=== PATIENT | female | born 1960 | race Caucasian/White ===

== ENCOUNTER 2017-02-14 06:00 | Inpatient (IN) | payer OTHER ==
[~2017-02-14] VITALS: Ht 172.7 cm; Wt 87.1 kg
--- NOTE | ~2017-02-14 | CO ---
Unit #: [id number] #: [id number] Patient: IRVIN MCCULLOUGH [id number] [place] [address] [id number] I MR#: [id number] NAME: IRVIN MCCULLOUGH ROOM: P176 Age: 56 Sex: F Admission Date: 02/14/2017 : 1960 Attending Physician: Pablo Vee M.D. Consultation Date: 02/18/2017 CONSULTATION REPORT REASON FOR CONSULTATION Elevated blood pressure/sore throat. HISTORY OF PRESENT ILLNESS The patient is a 56-year-old female, admitted secondary to acute psychiatric illness. I was asked to evaluate her secondary to elevated blood pressure. Initially, her blood pressure was 132/76 and had slowly risen; at one point, it was 166/113, this morning it is currently at 147/110. I was asked to evaluate for possible blood pressure management and/or medications. At the present time, the patient is quite somnolent. She denies any headaches or chest pain. She denies any prior history of any hypertension and at best, I do question her compliance. PAST MEDICAL HISTORY As per chart review. CURRENT MEDICATIONS Include Celexa, multivitamins, B12, Neurontin, and Tylenol. ALLERGIES No known drug allergies. REVIEW OF SYSTEMS Please see HPI. PHYSICAL EXAMINATION GENERAL: Awake, alert, oriented to person, place, and time. Well built, well nourished. Does not appear to be in any acute distress. HEAD: Atraumatic. Normocephalic. EYES: Bilateral extraocular muscles are normal. Pupils equal, reactive to light and accommodation. Sclerae are normal. No jaundice. NECK: Neck is supple. No neck rigidity. No thyromegaly. No carotid bruit. No JVD. Oral mucosa is moist. CHEST: Bilateral vesicular breathing. Clear to auscultation. No basilar rales. CARDIOVASCULAR: S1 and S2 normal. No murmur, no gallop, no rub. ABDOMEN: Soft, nontender. No organomegaly. Bowel sounds are normal. No hernia, no masses, no rebound, no guarding. EXTREMITIES: No pitting edema. No calf tenderness. Extremity pulses, including dorsalis pedis, have good volume. BACK: Normal spine curvature. No spine tenderness. No costovertebral angle tenderness. FAMILY LAW LEGAL ASSISTANT: Cranial nerves normal bilaterally. Motor function bilaterally symmetric and normal. Sensory system normal. Unit #: [id number] #: [id number] Patient: IRVIN MCCULLOUGH SKIN: The patient does have what appears to be a dried crusted lesion right beneath her nose above her upper lip. INITIAL IMPRESSION Elevated blood pressure, likely essential hypertension. PLAN At this point in time, I will initiate Norvasc 5 mg p.o. daily. She does have a mildly elevated creatinine of 1.2 and with her likely likelihood of not following up as an outpatient for routine laboratory studies, certainly her prognosis would be guarded secondary to elevated blood pressure. In regard to her discomfort of swallowing, at this point in time we will initiate Chloraseptic throat spray. If she does develop any elevated temperatures, cough, congestion, or any further upper respiratory infection signs or symptoms, I would be happy to re-evaluate her, but it seems likely secondary to her being a mouth breather. She likely has dry irritation present in the back of her throat and seems unlikely to be infectious in origin. Thank you Dr. Vee for this consultation. Dictated by... Linwood Epps M.D. FLO/jessica TD: 02/18/2017 18:34 JOB #: [id number] CONSULTATION REPORT Page 1 of 1 X Linwood Epps MD CONSULTATION REPORT
--- NOTE | ~2017-02-14 | HP ---
Unit #: [id number] #: [id number] Patient: SOCO MCCULLOUGH [id number] [place] [address] [id number] I MR#: [id number] NAME: SOCO MCCULLOUGH ROOM: P178 Age: 56 Sex: F Admission Date: 02/14/2017 : 1960 Attending Physician: Pablo Vee M.D. Admitting Physician: Pablo Vee M.D. HISTORY AND PHYSICAL HISTORY OF PRESENT ILLNESS Soco is a 56-year-old female admitted on 02/14/2017 to [facility] for detox from alcohol and psychosis. PAST MEDICAL HISTORY COPD and hypertension. PAST SURGICAL HISTORY Hysterectomy. SOCIAL HISTORY She is and homeless. She reports drinking half gallon of vodka daily, smokes a pack of cigarettes daily. She denies any illegal drug use. FAMILY HISTORY Noncontributory. REVIEW OF SYSTEMS CONSTITUTIONAL: No fever or chills. HEENT: Denies any sore throat, ear pain or runny nose. CARDIOVASCULAR: Denies chest pain, irregular heart rhythm or palpitations. CHEST: Denies shortness of breath or cough. No hemoptysis. GASTROINTESTINAL: Denies nausea, vomiting, diarrhea or chronic constipation. ENDOCRINE: Denies history of increased thirst or urination. No recent significant weight loss or gain. GENITOURINARY: Denies dysuria, frequency, or hematuria. SKIN: Denies any rashes. HEMATOLOGIC: Denies history of increased bleeding or bruising. MUSCULOSKELETAL: Denies any hot, swollen joints. No generalized muscle pain. NEUROLOGIC: Denies problems with vision or speech. No frequent, severe headaches. No numbness, tingling or weakness in any extremities. Denies loss of bladder or bowel control. CURRENT MEDICATIONS None. ALLERGIES None. Unit #: [id number] #: [id number] Patient: SOCO MCCULLOUGH PHYSICAL EXAMINATION GENERAL: Alert, oriented, in no acute distress. VITAL SIGNS: Blood pressure 166/113, heart rate 88, respirations 16, temperature 98.5. HEIGHT: 5 foot 8 inches. WEIGHT: 192 pounds. SKIN: Warm and dry without rash or lesion. HEENT: Normocephalic. TMs not viewed. Oral and nasal passages clear. Conjunctivae clear. PERRLA. EOMs intact. NECK: Supple without lymphadenopathy or thyromegaly. HEART: Regular rate and rhythm without murmur. LUNGS: Clear. ABDOMEN: Soft, nontender, without masses or hepatosplenomegaly. : Not done. EXTREMITIES: No evidence of cyanosis, clubbing or edema. Moves all without focal deficit. NEUROLOGICAL: Grossly within normal limits. Cranial Nerves: II: Visual martinez are intact. III, IV AND : Extraocular movements are intact. Pupils are equal, round and reactive to light. V: Facial sensation is grossly normal. VII: Facial movements and expression are normal. VIII: Auditory acuity grossly intact. IX, X: Uvula is midline. Phonation is normal. XI: Patient shrugs shoulders and turns head normally. XII: Tongue protrudes in the midline. Sensory and Motor Function: Sensory and motor sensation is grossly normal. Motor: moves all extremities well. Coordination: Gait is normal. Deep Tendon Reflexes: Intact. IMPRESSION Psychiatric admission. RECOMMENDATIONS Psychiatric, per psychiatrist. MEDICAL: I see no contraindications to participating in facility's activities. MEDICAL PROGNOSIS Good. MEDICAL CONDITION Stable. Dictated by... Jade Reyes/brayden TD: 02/15/2017 01:56 JOB #: [id number] Unit #: [id number] #: [id number] Patient: SOCO MCCULLOUGH HISTORY AND PHYSICAL Page 1 of 1 X RADHA DE LA CRUZ APRN HISTORY AND PHYSICAL
--- NOTE | ~2017-02-14 | PN ---
Unit #: [id number] #: [id number] Patient: SOCO HO [id number] [facility] [address] [place] [address] [id number] I MR#: [id number] NAME: SOCO HO ROOM: [facility] Age: 56 Sex: F Admission Date: 02/14/2017 : 1960 Attending Physician: Pablo Vee M.D. Admitting Physician: Eyad Zarate PROGRESS NOTES DATE 02/16/2017 DISCUSSION Ms. Soco Ho is a 56-year-old female seen on 02/16/2017. Patient interviewed. Chart reviewed. Obtained information from nursing staff. Patient currently reporting feeling sad, depressed. Still having withdrawals. Patient's vital signs 98.3, 96, 141/103. Patient still anxious, nervous, unsteady, sad, depressed, anxious. Complete review of system unremarkable. MENTAL STATUS EXAMINATION General appearance, patient dressed casually. Attention span, concentration fair. Oriented in time, place and person. Mood and affect sad, dysphoric. Speech monotone. Thought process concrete. Patient denied any thoughts of harming self or others but having above mentioned symptoms. Recent and remote memory poor. Insight and judgement poor. DIAGNOSES 1. Alcohol use disorder, severe. 2. Mood disorder NOS. ASSESSMENT/PLAN Advised to continue with current medication and therapeutic protocol. If needed, consider further adjustment of medication. Dictated by... Eyad Zarate/christopher TD: 02/16/2017 20:23 JOB #: [id number] Unit #: [id number] #: [id number] Patient: SOCO HO PROGRESS NOTES Page 1 of 1 X Pablo Vee MD PROGRESS NOTE
--- NOTE | ~2017-02-14 | PA ---
Unit #: [id number] #: [id number] Patient: IRVIN MCCULLOUGH [id number] [facility] [address] [place] [address] [id number] I MR#: [id number] NAME: IRVIN MCCULLOUGH ROOM: P176 Age: 56 Sex: F Admission Date: 02/14/2017 : 1960 Date of Assessment: Attending Physician: Pablo Vee M.D. Admitting Physician: Pablo Vee M.D. PSYCHIATRIC ASSESSMENT INFORMANTS The patient reliability, fair informant and chart reliability, good. CHIEF COMPLAINT Alcohol abuse. HISTORY OF PRESENT ILLNESS Ms. Mccullough is a 56-year-old female, presented with the above-mentioned complaint, requesting for detox from alcohol. The patient presented with alcohol abuse and alcohol withdrawal and scored 24 on a CIWA score, having sweating, anxiety, tactile auditory hallucination, sad, depressed, anxious, headache, and disorientation. The patient has been drinking half a gallon of vodka daily for the last 4 years. The patient currently endorsing hopelessness and wish, but denied any specific plan. The patient reports extensive history of depression and two previous suicide attempts at age 8 and 35 by hanging and overdose. The patient needing inpatient admission at this time for psychiatric stabilization. The patient also reported tobacco use, age of onset 53 and alcohol, age of onset 16, half a gallon daily. Longest period of sobriety 2 years, last period of sobriety in early 30s. The patient reported blackouts and withdrawal symptom, but no history of HIV, hepatitis, or IV drug use. Currently, reporting diarrhea, diaphoresis, anxiety, depression, and hallucinations. PAST PSYCHIATRIC HISTORY Remarkable for history of previous treatment inpatient in [place] in 2013 and also in [place] for suicidal ideation. History of treatment at age 6, inpatient at [facility]. FAMILY HISTORY AND SOCIAL HISTORY The patient currently homeless. No known history of any abuse known at this time or legal charges. MEDICAL HISTORY Remarkable for history of COPD and arthritis. Musculoskeletal; muscle strength and tone, no atrophy or abnormal movement. Gait normal. MEDICATION HISTORY None. ALLERGIES No known drug allergies. Unit #: [id number] #: [id number] Patient: IRVIN MCCULLOUGH SUBSTANCE ABUSE HISTORY Please see above. REVIEW OF SYSTEMS HEENT: Eyes, clear. Ears, nose, mouth, and throat; clear. CARDIOVASCULAR: Unremarkable. RESPIRATORY: Unremarkable. GI: Unremarkable. : Unremarkable. SKIN: Unremarkable. LYMPH NODE: Unremarkable. NEUROLOGIC: Unremarkable. ENDOCRINE: Unremarkable. HEMATOLOGIC: Unremarkable. ALLERGIC/IMMUNOLOGIC: Unremarkable. MUSCULOSKELETAL: Muscle strength and tone, no atrophy or abnormal movement. Gait normal. MENTAL STATUS EXAMINATION CONSTITUTIONAL: Measurement of vital signs; temperature 98.5, heart rate 88, respiratory rate 16, blood pressure 166/113, height 5 feet 8 inches, and weight 192 pounds. GENERAL APPEARANCE: The patient dressed casually. The patient did not show any facial deformity. MUSCULOSKELETAL: Please see above. PSYCHIATRIC EXAMINATION Description of speech, rapid in rate. Description of thought process, circumstantial. Description of association, guarded. Description of abnormal psychotic thinking; the patient reported hallucination, paranoia, mood lability, depression, and suicidal ideation. Description of the patient's judgment: Concerning everyday activity, poor. Social situation, poor. Concerning psychiatric condition, poor. Complete mental status examination; oriented in time, place, and person. Recent and remote memory, fair. Attention span and concentration, poor. Language, intact. Fund of knowledge, fair. Mood and affect, labile. Insight and judgment, fair to poor. ASSETS AND LIABILITIES Assets, the patient is articulate and able to take care of her ADL. Liability, history of depression and substance abuse. ADMITTING DIAGNOSES Psychiatric: Alcohol use disorder, severe, F10.20 and major depressive disorder, recurrent, severe, F33.2. Secondary diagnosis: Deferred. Medical diagnoses: Chronic obstructive pulmonary disease and arthritis. Stressors: Psychosocial stressors, homelessness, financial problem, and poor support system. PSYCHIATRIC PLAN AND TREATMENT GOAL AND DISCHARGE PLAN 1. Advised to admit the patient on the inpatient unit. Provide safe, supportive, and structured environment. 2. Ordered labs; CBC, CMP, UA, and UDS. Unit #: [id number] #: [id number] Patient: IRVIN MCCULLOUGH 3. Precaution for self-harm. 4. Detox protocol and detox monitoring. Plan to consider medication such as SSRI. Treatment goal to attain euthymic mood, gain insight into her problem, and learn coping skills. The patient to attend all the programing including group therapy, individual therapy, chemical dependency group. We will also get a medical consult to review the patient's medical problems and treatment. DISCHARGE PLAN Plan to stabilize the patient and consider followup in outpatient program. ESTIMATED LENGTH OF STAY 5 days. Dictated by... Eyad Zarate/jessica TD: 02/14/2017 16:02 JOB #: [id number] PSYCHIATRIC ASSESSMENT Page 1 of 1 X Pablo Vee MD PSYCHIATRIC ASSESSMENT
--- NOTE | ~2017-02-14 | PN ---
Unit #: [id number] #: [id number] Patient: IRVIN MCCULLOUGH [id number] [facility] [address] [place] [address] [id number] I MR#: [id number] NAME: IRVIN MCCULLOUGH ROOM: [facility] Age: 56 Sex: F Admission Date: 02/14/2017 : 1960 Attending Physician: Pablo Vee M.D. Admitting Physician: Eyad Zarate PROGRESS NOTES DATE 02/15/2017 DISCUSSION Ms. Wan is a 56-year-old female seen on 02/15/2017. Patient interviewed. Chart reviewed. Obtained information from nursing staff. Patient's vital signs stable 98.3, 93, 128/79. Patient continues to be isolative, flat affect. Reported still having withdrawal symptoms from alcohol. Patient's vital signs 98.3, 93, 128/79. Complete review of system unremarkable. MENTAL STATUS EXAMINATION General appearance, patient dressed casually. Attention span, concentration fair. Oriented in time, place and person. Mood and affect sad, depressed. Speech monotone. Thought process concrete. Patient denied any suicidal or homicidal ideation but passive thoughts. Patient somewhat guarded, paranoid, isolative. Recent and remote memory poor. Insight and judgement poor. DIAGNOSES 1. Alcohol use disorder, severe. 2. Mood disorder NOS. ASSESSMENT/PLAN Advised to continue with current medications and therapeutic protocol. If needed, consider further adjustment of medication. Dictated by... Eyad Zarate/christopher TD: 02/15/2017 18:20 JOB #: [id number] Unit #: [id number] #: [id number] Patient: IRVIN MCCULLOUGH PROGRESS NOTES Page 1 of 1 X Pablo Vee MD X PROGRESS NOTE
--- NOTE | ~2017-02-14 | PN ---
Unit #: [id number] #: [id number] Patient: IRVIN HO [id number] [facility] [address] [place] [address] [id number] I MR#: [id number] NAME: IRVIN HO ROOM: [facility] Age: 56 Sex: F Admission Date: 02/14/2017 : 1960 Attending Physician: Pablo Vee M.D. Admitting Physician: Eyad Zarate PROGRESS NOTES DATE OF SERVICE 02/18/2017 DISCUSSION Ms. Ho is a 56-year-old female. Patient interviewed, chart reviewed. Obtained information from nursing staff. Patient still very anxious, nervous, restless, a lot of anxiety, mood lability. Patient tolerating medication fairly well. Patient still feeling very sad, depressed. Complete review of systems unremarkable. MENTAL STATUS EXAMINATION Vital signs 98.3, 90, 147/110. Attention span and concentration fair. Oriented to place and person. Mood and affect sad, depressed. Speech monotone. Thought process concrete. Patient having passive SI. Denied any homicidal ideation, guarded, isolative. Recent and remote memory poor. Insight and judgement poor. DIAGNOSES 1. Alcohol use disorder severe. 2. Mood disorder NOS. ASSESSMENT/PLAN Advise to continue with current medication and therapeutic protocol. If needed consider further adjustment of medication. Dictated by... Eyad Zarate/brayden TD: 02/20/2017 04:37 JOB #: [id number] Unit #: [id number] #: [id number] Patient: IRVIN HO PROGRESS NOTES Page 1 of 1 X Pablo Vee MD X PROGRESS NOTE
--- NOTE | ~2017-02-14 | PN ---
Unit #: [id number] #: [id number] Patient: SOCO HO [id number] [facility] [address] [place] [address] [id number] I MR#: [id number] NAME: SOCO HO ROOM: [facility] Age: 56 Sex: F Admission Date: 02/14/2017 : 1960 Attending Physician: Pablo Vee M.D. Admitting Physician: Eyad Zarate PROGRESS NOTES DATE 02/19/2017 DISCUSSION Ms. Soco Ho is a 56-year-old female, seen on 02/19/2017. The patient interviewed, chart reviewed, and obtained information from the nursing staff on 02/19/2017. The patient was compliant and cooperative during interview. Mood was sad and dysphoric, flat affect, and guarded, isolative. The patient's vital signs are stable, 98.4, 67, and 164/95 but still having withdrawal symptoms from alcohol. REVIEW OF SYSTEMS Complete review of systems unremarkable. MENTAL STATUS EXAMINATION General appearance: Patient dressed casually. Attention span and concentration, fair. Oriented in place and person. Mood and affect, sad, depressed, withdrawn, isolative, guarded. Recent and remote memory, poor. Insight and judgment, poor. DIAGNOSES 1. Alcohol use disorder, severe. 2. Mood disorder, NOS. ASSESSMENT/PLAN Advised to continue with the current medication and therapeutic protocol, and if needed consider further adjustment of medication. Dictated by... Eyad Zarate/dano TD: 02/20/2017 12:20 JOB #: [id number] Unit #: [id number] #: [id number] Patient: SOCO HO PROGRESS NOTES Page 1 of 1 X Pablo Vee MD PROGRESS NOTE
--- NOTE | ~2017-02-14 | CO ---
Unit #: [id number] #: [id number] Patient: SOCO MCCULLOUGH [id number] [place] [address] [id number] MR#: [id number] NAME: SOCO MCCULLOUGH ROOM: [facility] Age: 56 Sex: F Admission Date: 02/14/2017 : 1960 Attending Physician: Pablo Vee M.D. Consultation Date: 02/14/2017 CONSULTATION REPORT HISTORY OF PRESENT ILLNESS Soco reports a history of high blood pressure. She has been taking carvedilol 12.5 mg b.i.d., but her last dose was in March that was verified by pharmacy. She denies any chest pain or headache and is here to detox from alcohol. She has no complaints. PHYSICAL EXAMINATION CARDIAC: Regular rate and rhythm. No murmurs, gallops, or rubs. RESPIRATORY: Clear to auscultation bilaterally. ASSESSMENT AND PLAN Hypertension. Her blood pressures here have ranged from 110/73 to 166/113 and heart rates have been 72 to 108. For this reason, I am going to prescribe clonidine 0.1 mg p.o. q.12 hours p.r.n. for blood pressures greater than 140/90. She was instructed to follow up with her primary care provider after discharge to be restarted on medications. Dictated by... Jade Reyes/jessica TD: 02/14/2017 23:10 JOB #: [id number] CONSULTATION REPORT Page 1 of 1 X RADHA DE LA CRUZ APRN CONSULTATION REPORT
--- NOTE | ~2017-02-14 | PN ---
Unit #: [id number] #: [id number] Patient: IRVIN HO [id number] [facility] [address] [place] [address] [id number] I MR#: [id number] NAME: IRVIN HO ROOM: [facility] Age: 56 Sex: F Admission Date: 02/14/2017 : 1960 Attending Physician: Pablo Vee M.D. Admitting Physician: Eyad Zarate PROGRESS NOTES DATE OF SERVICE 02/17/2017 DISCUSSION Ms. Ho is a 56-year-old female seen on 02/17/2017. Patient interviewed, chart reviewed. Obtained information from nursing staff. Patient continues to be withdrawn, isolative, flat affect, sad, dysphoric mood. Currently on detox protocol. Vital signs stable, 98.4, 90, 147/110. Complete review of systems unremarkable. MENTAL STATUS EXAMINATION General appearance, patient dressed casually. Attention span and concentration fair. Oriented to place and person. Mood and affect sad, depressed. Speech monotone. Thought process concrete. Patient denied any suicidal ideation but withdrawn, isolative, flat affect, seclusive. Recent and remote memory poor. Insight and judgement poor. DIAGNOSES 1. Alcohol use disorder severe. 2. Mood disorder NOS. ASSESSMENT/PLAN Advise to continue with current medication and a plan to get medical consultation for hypertension management. If needed consider further adjustment of medication. Continue with the inpatient programming. Dictated by... Eyad Zarate/brayden TD: 02/19/2017 03:30 JOB #: [id number] Unit #: [id number] #: [id number] Patient: IRVIN HO PROGRESS NOTES Page 1 of 1 X Pablo Vee MD PROGRESS NOTE
--- NOTE | ~2017-02-14 | DS ---
Unit #: [id number] #: [id number] Patient: IRVIN MCCULLOUGH [id number] [place] [address] [id number] I MR#: [id number] NAME: IRVIN MCCULLOUGH ROOM: 76 Age: 56 Sex: F Admission Date: 02/14/2017 : 1960 Discharge Date: 02/20/2017 Attending Physician: Pablo Vee M.D. DISCHARGE SUMMARY REASON FOR ADMISSION Alcohol abuse, depression. DIAGNOSTIC STUDIES LABORATORY RESULTS: Unremarkable. HOSPITAL COURSE The patient was admitted to inpatient unit on 02/14/2017 and discharged on 02/20/2017. The patient was treated with behavior management, chemical dependency group, expressive therapy, detox protocol, detox monitoring, medication management. The patient was responsive to treatment. Subsequently, the patient was discharged with a plan to follow up in outpatient program. DISCHARGE MEDICATIONS Celexa 20 mg at bedtime for depression, Neurontin 300 mg t.i.d. for anxiety and chronic pain, Vistaril 50 mg t.i.d. for anxiety, Norvasc 5 mg once daily for hypertension. DISCHARGE DIAGNOSES Psychiatric: Alcohol use disorder, severe, F10.20; major depressive disorder, recurrent, severe, F33.2. Secondary diagnosis: Deferred. Medical diagnosis: Chronic obstructive pulmonary disease, arthritis, chronic pain. Stressors: Psychosocial stressor, homelessness, financial problem, poor support system. DISCHARGE INSTRUCTIONS The patient to follow up in outpatient clinic as per transition social worker. CONDITION ON DISCHARGE The patient was pleasant and cooperative. Denied any psychotic symptom or any suicidal ideation. PROGNOSIS Guarded. DIET AND ACTIVITY As tolerated. Unit #: [id number] #: [id number] Patient: IRVIN MCCULLOUGH Dictated by... Pablo Vee M.D. SZC/final TD: 02/21/2017 03:11 JOB #: [id number] DISCHARGE SUMMARY Page 1 of 1 X Pablo Vee MD X DISCHARGE SUMMARY
--- NOTE | ~2017-02-14 | A ---
[facility] Nutrition Therapy DATE: 02/16/17 Patient: IRVIN MCCULLOUGH Physician: CARA Address: NO PERMANENT ADDRESS Room/Bed: [address], Zip: [place] [address] Admit Date: 02/14/17 Date of : 62 Height: 5 8 Weight: [id number] NUTRITIONAL ASSESSMENT: REASON: 2 NUTRITIONAL RISK POINTS- UNINTENTIONAL WEIGHT LOSS, CHEWING/SWALLOWING DIFFICULTIES PATIENT ADMITTED FOR ETOH DETOX AND PSYHCOSIS PMH: COPD, HTN Anthropometrics: HT: 68", WT: 192#, BMI: 29.2 Labs: NO LABS AVAILABLE Meds: NEURONTIN, CELEXA, TRAZODONE, DETOX PROTOCOL Assessment: PATIENT IS A 56 Y/O FEMALE ADMITTED FOR ETOH DETOX AND PSYCHOSIS. PATIENT IS CURRENTLY UNEMPLOYED, HOMELESS, SMOKES 1 PPD, DRINKS 1/2 GALLON ETOH DAILY FOR LAST 4 YEARS, AND HAS A HX OF OPIATE ABUSE. PATIENT IS NOTED TO HAVE SOME DISORIENTATION, SHE HAS A HX OF INPATIENT PSYCH TREATMENT, AND SHE IS ACTIVELY DETOXING. UPON ADMIT PATIENT STATED A POOR APPETITE WITH A 100# WEIGHT LOSS OVER LAST 2 YEARS, AND SHE REPORTS INSOMNIA. THERE IS NO WEIGHT HX RECORDED IN [facility]. NURSING REPORTS GOOD PO INTAKES. THERE ARE NO SKIN OR GI ISSUES NOTED ATT. PATIENT'S BMI IS ABOVE A HEALTHY RANGE OF 19-25. CURRENT PSYCH MEDS MAY CAUSE WEIGHT AND APPETITE FLUCTUATIONS. PATIENT IS ON A REGULAR DIET WITH NO CAFFEINE AND RECEIVES LARGE PORTION ENTREES. SHE DOES NOT HAVE ANY C/O CHEWING OR SWALLOWING DIFFICULTIES ATT. Dx: UNINTENTIONAL WEIGHT LOSS R/T SUBSTANCE ABUSE, CURRENT CONDITION AEB SELF-REPORTED WEIGHT LOSS, 2 NUTRITIONAL RISK POINTS Intervention: REGULAR DIET, LARGE PORTIONS, MEDS PER MD, DETOX, PSYCH Monitoring, Evaluation and Goals: 1. ADEQUATE PO INTAKES >50% OF MEALS 2. PREVENT, CORRECT MICRO/MACRO NUTRIENT DEFICIENCIES MONITOR: WEIGHTS, LABS, PO/FLUID INTAKES Recommendations: 1. CONTINUE REGULAR DIET WITH LARGE PORTION ENTREES TOLERATED. OFFER SNACKS BETWEEN MEALS 2. ENCOURAGE ADEQUATE PO AND FLUID INTAKES [facility] Nutrition Therapy DATE: 02/16/17 Patient: IRVIN MCCULLOUGH Physician: CARA Address: NO PERMANENT ADDRESS Room/Bed: [address], Zip: [place] [address] Admit Date: 02/14/17 Date of : 62 Height: 5 8 Weight: [phone] 3. OBTAIN WEIGHTS ROUTINELY (EVERY 3-4 DAYS) 4. IF PO INTAKES ARE BELOW 50% OF MEALS PLEASE ORDER ENSURE BID TO PROMOTE ADEQUATE KCAL AND PROTEIN INTAKES 5. IF PATIENT HAS C/O CHEWING OR SWALLOWING DIFFICULTIES PLEASE CONSULT TOUR COUNSELOR FOR FURTHER EVALUATION RD TO F/U PER PROTOCOL AND PRN R/T PATIENT MILDLY COMPROMISED Respectfully, PATRIC SOUTH, RD, LD [facility] cc: client file
== END 2017-02-20 15:50 | DRG 897 ==
LOC: P1E 10:13
PROC: HZ2ZZZZ Detoxification Services for Substance Abuse Treatment (ICD-10-PCS; principal; 2017-02-14)
DX: F10.20 Alcohol dependence, uncomplicated (principal); R45.851 Suicidal ideations; F33.2 Major depressive disorder, recurrent severe without psychotic features; F39 Unspecified mood [affective] disorder; J44.9 Chronic obstructive pulmonary disease, unspecified; M19.90 Unspecified osteoarthritis, unspecified site; I10 Essential (primary) hypertension; Z90.710 Acquired absence of both cervix and uterus; Z59.0 Homelessness; F17.210 Nicotine dependence, cigarettes, uncomplicated
CPT/HCPCS: 84703; 86592